=== PATIENT | female | born 1940 | race Caucasian/White ===

== ENCOUNTER 2018-12-10 04:43 | Emergency (ER) | payer MEDICARE ==
[~2018-12-10] VITALS: Ht 177.8 cm; Wt 98.0 kg
--- NOTE | 2018-12-10 04:59 | NUR ---
bib [facility] d/t rt side sciatica pain . this pain is chronic but pt stated the pain is getting worse called [facility] for check out vss stable ekg is wdl afebrile [facility] reason pt is following [facility] for this reason hx dm htn heart attack with 5 stents on insulin erp at bedside pt is in gurney w/o distress call light within reach
[2018-12-10] MEDS ORDERED: SERT50TA28 PO (05:02)
[2018-12-10] MEDS ORDERED: INSU100C5 SQ-INSULIN (05:02)
[2018-12-10] MEDS ORDERED: ASPI-496 PO (05:02)
[2018-12-10] MEDS ORDERED: INSU300I SQ (05:02)
[2018-12-10] MEDS ORDERED: SIMV10TA3 PO (05:02)
[2018-12-10] MEDS ORDERED: PLEASE ENTER ALLERGIES MC SCH (05:30)
[2018-12-10] MEDS ORDERED: HYDROcodone/APAP 5/325 TABLET PO ONE (05:30)
[2018-12-10] MEDS ORDERED: HYDROcodone/APAP 5/325 TABLET ONE (05:49)
[2018-12-10 05:52] LABS: BASOPHILS # (AUTO) 0.02 x10^3/uL (0-0.1); BASOPHILS % (AUTO) 0 % (0-1); EOSINOPHILS # (AUTO) 0.01 x10^3/uL (0-0.4); EOSINOPHILS % (AUTO) 0 % (1-7); LYMPHOCYTES # (AUTO) 1.47 x10^3/uL (1-3.4); LYMPHOCYTES % (AUTO) 25 % (22-44); MD NO; MEAN CORPUSCULAR HEMOGLOBIN 31.5 pg (27.0-34.8); MEAN CORPUSCULAR HGB CONC 34.1 g/dL (32.4-35.8); MEAN CORPUSCULAR VOLUME 92.3 fL (80-100); MEAN PLATELET VOLUME 7.7 fL (7.4-10.4); MONOCYTES # (AUTO) 0.49 x10^3/uL (0.2-0.8); MONOCYTES % (AUTO) 8 % (2-9); NEUTROPHILS # (AUTO) 3.89 x10^3/uL (1.8-6.8); NEUTROPHILS % (AUTO) 66 % (42-75); PLATELET COUNT 232 x10^3/uL (130-400); RED BLOOD COUNT 4.18 x10^6/uL (3.82-5.3); RED CELL DISTRIBUTION WIDTH 13.3 % (9.6-15.2)
--- NOTE | 2018-12-10 05:52 | NUR ---
urine sent to lab pt was on bsc and collected urine pt was able to transfer by herself withsupervision
[2018-12-10 05:58] LABS: MICROSCOPIC AUTO
[2018-12-10 05:59] LABS: CULTURE INDICATED? YES
[2018-12-10 06:00] LABS: ALBUMIN 3.6 g/dL (3.4-5.0); ANION GAP 4 mmol/L (5-15); CALCIUM 8.8 mg/dL (8.5-10.1); CHLORIDE 110 mmol/L (98-107); CREATININE 1.14 mg/dL (0.55-1.02)
--- NOTE | 2018-12-10 06:35 | NUR ---
pt called neighbor for riding walker is ready to be used by patient if no walker was available given dc instruction pt understood
[2018-12-10 06:36] VITALS: BP 150/75
--- NOTE | 2018-12-10 06:52 | NUR ---
given report to jack arnold
--- NOTE | 2018-12-10 06:56 | NUR ---
BEDSIDE REPORT FROM DECLAN RN, PT RESTING IN [facility]. WAITING ON RIDE HOME FROM NEIGHBOR.
== END 2018-12-10 08:18 | disposition home or self-care (01) ==
LOC: ED 05:25
DX: M54.41 Lumbago with sciatica, right side (principal); M54.6 Pain in thoracic spine; E78.00 Pure hypercholesterolemia, unspecified; E11.9 Type 2 diabetes mellitus without complications; F32.9 Major depressive disorder, single episode, unspecified
CPT/HCPCS: 36415; 80048; 81001; 82040; 85025; 87086; 99283